=== PATIENT | female | born 1950 | race Hispanic/Latino ===

== ENCOUNTER 2021-02-18 10:01 | Outpatient (CLI) | payer MEDICARE | END 2021-02-18 10:02 | disposition home or self-care (01) | LOC: CSHMAMMO 10:01 | PROVIDERS: ATTEND Internal Medicine | DX: Z12.31 Encounter for screening mammogram for malignant neoplasm of breast (principal) | CPT/HCPCS: 77063; 77067 ==

== ENCOUNTER 2021-02-20 06:00 | Emergency (ER) | payer MEDICARE | END 2021-02-20 06:42 | disposition home or self-care (01) | LOC: CSHERS 06:00 | DX: I10 Essential (primary) hypertension (principal); Z79.899 Other long term (current) drug therapy | CPT/HCPCS: 99283 ==

== ENCOUNTER 2024-11-28 05:04 | Emergency (ER) | payer MEDICARE ==
[2024-11-28] MEDS ORDERED: Ondansetron PF 4 MG/2 ML Vial ONE (05:58)
[2024-11-28] MEDS ORDERED: Ketorolac Tromethamine 30 MG (1 mL) VIAL ONE (05:58)
[2024-11-28 05:59] LABS: #Basophils 0.03 10x3/uL (0.0-0.2); #Eosinophils 0.09 10x3/uL (0.0-0.5); #Monocytes 0.41 10x3/uL (0.0-1.1); #Neutrophils 10.87 10x3/uL (1.5-8.4); %Basophils 0.3 % (0.0-2.0); %Eosinophils 0.8 % (0.0-6.0); %Lymphocytes 3.8 % (18.0-47.0); %Monocytes 3.4 % (0.0-10.0); %Neutrophils 91.4 % (40.0-75.0); Hematocrit 45.2 % (34.9-44.5); Hemoglobin 15.6 g/dL (12.0-15.5); Mean Corpuscular HGB CONC 34.5 g/dL (32.0-36.0); Mean Corpuscular Hemoglobin 29.5 pg (27.0-33.0); Mean Corpuscular Volume 85.6 fL (81.6-98.3); Mean Platelet Volume 9.8 fL (7.4-10.4); Platelet Count 213 10x3/uL (150-450); RBC Distribution Width 13.2 % (11.5-14.5); Red Blood Cell (RBC) Count 5.28 10x6/uL (3.90-5.03); White Blood Cell (WBC) Count 11.89 10x3/uL (3.5-10.5)
[2024-11-28 06:19] LABS: ALT (SGPT) 23 U/L (8-55); AST (SGOT) 21 U/L (5-34); Albumin 4.1 g/dL (3.4-4.8); Alkaline Phosphatase 64 U/L (40-110); Anion Gap 15 mmol/L (10-20); BUN (Urea Nitrogen) 18 mg/dL (9.8-20.1); Bilirubin, Total 1.6 mg/dL (0.2-1.2); Calc. Creatinine Clearance 0 mL/min (70-130); Calcium 9.5 mg/dL (7.8-10.44); Carbon Dioxide 24 mmol/L (23-31); Chloride 104 mmol/L (98-107); Estimated GFR 71; Globulin 3.3 g/dL (2.4-3.5); Glucose 192 mg/dL (83-110); Lipase 19 U/L (8-78); Potassium 3.4 mmol/L (3.5-5.1); Protein, Total 7.4 g/dL (5.8-8.1); Sodium 140 mmol/L (136-145)
[2024-11-28 08:22] LABS: Bilirubin Neg (Negative); Blood, Urine 10 (Negative); Clarity Clear (Clear); Glucose, Urine (Dipstick) Normal (Negative); Ketone, Urine Negative (Negative); Leukocyte 100 (Negative); Nitrite Negative (Negative); Protein, Urine (Dipstick) 15 mg/dl (Neg-Trace); Specific Gravity, Urine 1.005 (1.005-1.030); Urobilinogen Normal mg/dL (Less than 2)
[2024-11-28 08:50] LABS: Bacteria/HPF 1+ HPF (None Seen); CAUTI Indications for Culture Dysuria,urgency,freq; RBC/HPF 0-3 HPF (0-3); Squamous Epithelial 21-50 HPF (0-3)
[2024-11-28 08:51] LABS: Urine Culture Reflex No No
[2024-11-28] MEDS ORDERED: Iopamidol 370 76% 100 ML VIAL ONE (13:03)
== END 2024-11-28 09:15 | disposition home or self-care (01) ==
LOC: CSHERS 05:04
DX: K52.9 Noninfective gastroenteritis and colitis, unspecified (principal); I10 Essential (primary) hypertension
CPT/HCPCS: 74177; 80053; 81001; 83690; 83735; 85025; 96374; 96375; 99284; J1885; J2405; Q9967; 36415

== ENCOUNTER 2025-10-29 22:27 | Emergency (ER) | payer MEDICARE ==
[~2025-10-29 22:27] MED LIST: Iopamidol 370 76% 100 ML VIAL ONE
[2025-10-29 22:47] LABS: #Basophils 0.06 10x3/uL (0.0-0.2); #Eosinophils 0.41 10x3/uL (0.0-0.5); #Monocytes 0.66 10x3/uL (0.0-1.1); #Neutrophils 2.67 10x3/uL (1.5-8.4); %Basophils 0.8 % (0.0-2.0); %Eosinophils 5.6 % (0.0-6.0); %Lymphocytes 48.0 % (18.0-47.0); %Monocytes 9.0 % (0.0-10.0); %Neutrophils 36.5 % (40.0-75.0); Hematocrit 44.6 % (34.9-44.5); Hemoglobin 15.3 g/dL (12.0-15.5); Mean Corpuscular Hemoglobin 29.3 pg (27.0-33.0); Mean Corpuscular Volume 85.3 fL (81.6-98.3); Platelet Count 239 10x3/uL (150-450); Red Blood Cell (RBC) Count 5.23 10x6/uL (3.90-5.03); White Blood Cell (WBC) Count 7.33 10x3/uL (3.5-10.5)
[2025-10-29 23:04] LABS: ALT (SGPT) 18 U/L (Less than 34); AST (SGOT) 28 U/L (11-34); Albumin 4.4 g/dL (3.1-4.5); Alkaline Phosphatase 82 U/L (40-110); Anion Gap 15 mmol/L (10-20); BUN (Urea Nitrogen) 14 mg/dL (9.8-20.1); Bilirubin, Total 0.6 mg/dL (0.3-1.2); Calc. Creatinine Clearance 0 mL/min (70-130); Calcium 9.6 mg/dL (7.8-10.44); Carbon Dioxide 24 mmol/L (23-31); Chloride 104 mmol/L (98-107); Globulin 3.1 g/dL (2.4-3.5); Glucose 192 mg/dL (83-110); Potassium 3.6 mmol/L (3.5-5.1); Sodium 139 mmol/L (136-145)
[2025-10-29 23:11] LABS: Troponin I Less than 0.010 ng/mL (< 0.028)
[2025-10-30 01:08] LABS: Troponin I 0.011 ng/mL (< 0.028)
== END 2025-10-30 01:58 | disposition home or self-care (01) ==
LOC: CSHERS 22:27
DX: R00.2 Palpitations (principal); R42 Dizziness and giddiness; F41.1 Generalized anxiety disorder; R29.700 NIHSS score 0; I10 Essential (primary) hypertension
CPT/HCPCS: 71275; 80053; 83605; 83880; 84484; 85025; 93005; J3360; 36415; 96374; Q9967